=== PATIENT | female | born 1925 | race Caucasian/White ===

== ENCOUNTER 2016-11-27 08:47 | Outpatient (CLI) | payer MEDICARE, OTHER ==
[2016-11-27 09:33] LABS: #Basophils 0.1 thou/uL (0.0-0.2); #Eosinphils 0.4 thou/uL (0.0-0.7); #Lymphocytes 1.3 thou/uL (1.20-3.40); #Monocytes 0.6 thou/uL (0.11-0.59); #Neutrophils 3.7 thou/uL (1.40-6.50); %Basophils 2.3 % (0.0-1.0); %Lymphocytes 21.6 % (21.0-51.0); %Monocytes 9.7 % (0.0-10.0); %Neutrophils 59.5 % (42.0-75.0); Hemoglobin 11.7 g/dL (12.0-16.0); Mean Corpuscular HGB CONC 33.2 g/dL (32.0-36.0); Mean Corpuscular Hemoglobin 30.7 pg (27.0-31.0); Mean Corpuscular Volume 92.5 fl (81.0-99.0); Mean Platelet Volume 8.9 fL (7.4-10.4); Platelet Count 207 thou/uL (130-400); RBC Distribution Width 11.4 % (11.5-14.5); Red Blood Cell (RBC) Count 3.82 mill/uL (4.20-5.40); White Blood Cell (WBC) Count 6.2 thou/uL (4.8-10.8)
[2016-11-27 09:48] LABS: ALT (SGPT) 13 U/L (0-55); AST (SGOT) 19 U/L (5-34); Albumin 3.5 g/dL (3.4-4.8); Alkaline Phosphatase 90 U/L (40-150); Anion Gap 13 mmol/L (10-20); BUN (Urea Nitrogen) 18 mg/dL (9.8-20.1); Bilirubin, Total 0.5 mg/dL (0.2-1.2); Calc. Creatinine Clearance 0 mL/min (70-130); Calcium 8.7 mg/dL (7.8-10.44); Carbon Dioxide 26 mmol/L (23-31); Cardiac Risk 2.5 (Less than 4.5); Chloride 100 mmol/L (98-107); Cholesterol 143 mg/dL (< 200 Desired); Estimated GFR-MDRD 49; Globulin 2.7 g/dL (2.4-3.5); Glucose 84 mg/dL (83-110); HDL Cholesterol 57 mg/dL (>60 Neg Risk); LDL Cholesterol, Calculated 77 mg/dL; Protein, Total 6.2 g/dL (5.8-8.1); Sodium 135 mmol/L (136-145); Triglycerides 43 mg/dL (Less than 150)
== END 2016-11-27 08:48 ==
LOC: MADLABBHPM 08:47
PROVIDERS: ATTEND Family Medicine
DX: E78.2 Mixed hyperlipidemia (principal); F51.04 Psychophysiologic insomnia; I10 Essential (primary) hypertension
CPT/HCPCS: 36415; 80053; 80061; 85025